=== PATIENT | female | born 1935 | race African-American/Black ===

== ENCOUNTER 2020-11-27 14:25 | Outpatient (CLI) | payer MEDICARE | END 2020-11-27 14:26 | disposition home or self-care (01) | LOC: BURRAD 14:25 | PROVIDERS: ATTEND Family Medicine | DX: S39.92XA Unspecified injury of lower back, initial encounter (principal); M53.3 Sacrococcygeal disorders, not elsewhere classified | CPT/HCPCS: 72220 ==